=== PATIENT | female | born 1990 | race American Indian/Alaskan Native ===

== ENCOUNTER 2016-09-16 20:34 | Inpatient (IN) | payer MEDICAID ==
[2016-09-16] MEDS ORDERED: Citric Acid/Sodium Citrate Solution 30 ML Cup PO ONE (21:34)
[2016-09-16] MEDS ORDERED: Metoclopramide 10 MG/2 ML SDV IVPUSH ONE (21:34)
[2016-09-16] MEDS ORDERED: Sodium Chloride 0.9% 10 ML Syringe FLUSH PRN (21:34)
[2016-09-16] MEDS ORDERED: Lactated Ringers 1,000 ML IV SCH (21:45)
[2016-09-16] MEDS ORDERED: Oxytocin/Lactated Ringers 10 UNIT/1,000 ML BAG IV SCH (21:45)
[2016-09-16] MEDS ORDERED: ceFAZolin 2 GM in Premix Bag 1 BAG IV ONE (22:06)
[2016-09-16] MEDS ORDERED: Bupivacaine 0.5% 30 ML SDV ONE (22:06)
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
[2016-09-16] MEDS ORDERED: Oxytocin 10 Units/1 ML SDV ONE (22:14)
[2016-09-16] MEDS ORDERED: Phenylephrine 1% 10 MG/ML SDV ONE (22:14)
[2016-09-16] MEDS ORDERED: Lactated Ringers 1,000 ML ONE (22:14)
[2016-09-16] MEDS ORDERED: Morphine PF 10 MG/10 ML SDV ONE (22:14)
[2016-09-16] MEDS ORDERED: ceFAZolin 1 GM Vial ONE (22:14)
[2016-09-16] MEDS ORDERED: Ondansetron 4 MG/2 ML SDV ONE (22:14)
[2016-09-16] MEDS ORDERED: Ketorolac 30 MG/ML SDV ONE (22:14)
[2016-09-16] MEDS ORDERED: fentaNYL 100 MCG/2 ML SDV IVPUSH PRN (22:48)
[2016-09-16] MEDS ORDERED: Ondansetron 4 MG/2 ML SDV IVPUSH PRN (22:48)
[2016-09-16] MEDS ORDERED: diphenhydrAMINE 50 MG/ML SDV IVPUSH PRN (22:48)
[2016-09-16] MEDS ORDERED: Meperidine PF 50 MG/ML Syringe IVPUSH PRN (22:48)
[2016-09-16] MEDS ORDERED: HYDROmorphone 0.5 MG/0.5 ML Syringe IVPUSH PRN (22:48)
[2016-09-16] MEDS ORDERED: ePHEDrine 50 MG/ML SDV IVPUSH PRN (22:48)
[2016-09-16] MEDS ORDERED: Phenylephrine 1 MG in Sodium Chloride 0.9% 10 ML IV SCH (23:00)
[2016-09-16] MEDS ORDERED: fentaNYL 100 MCG/2 ML SDV ONE (23:17)
--- NOTE | 2016-09-16 23:33 | PCM.POSTAN ---
POST ANESTHESIA ASSESSMENT - MENTAL STATUS Mental Status: alert - VITAL SIGNS Pulse Rate: 57 SaO2: 99 Resp Rate: 12 Blood Pressure: 121/70 Temperature: 36.8 C - RESPIRATORY Respiratory Status: respiratory rate WNL, airway patent, O2 saturation stable - CARDIOVASCULAR CV Status: pulse rate WNL, blood pressure stable - GASTROINTESTINAL GI Status: no symptoms - POST OP HYDRATION Hydration Status: adequate & stable
--- NOTE | 2016-09-17 | PCM.OPNOTE ---
- General Post-Op/Procedure Note Date of Surgery/Procedure: 09/16/16 Operative Procedure(s): repeat section Findings: Viable male, 9/9 apgars, weight 6#8oz, normal uterus tubes and ovaries. Pre Op Diagnosis: prior , labor, no care Post-Op Diagnosis: Same Anesthesia Technique: Spinal Primary Surgeon: Tatiana Cordero Anesthesia Provider: Claudia Monroe Apartment Maintenance Worker: Dennis Romero Pathology: none Fluid Replacement, Intraop: 1,100 Output, Urine Amount: 100 EBL in mLs: 500 Complications: None Condition: Good Free Text/Narrative:: The patient was taken to the operating room where spinal anesthesia was initiated without difficulty. The patient was prepped and draped in the usual sterile fashion in the dorsal supine position with a leftward tilt. A Pfannenstiel skin incision was made with the scalpel and carried through to the underlying layer of fascia. The fascia was incised in the midline and extended laterally using Sepulveda scissors. Adhesions from prior surgeries seen. Rob clamps were used to elevate the superior aspect of the fascial incision, which was elevated, and the underlying rectus muscles were dissected off bluntly and using Sepulveda scissors. Attention was then turned to the inferior aspect of the fascial incision, which in similar fashion was grasped with Rob clamps, elevated, and the underlying rectus muscles were dissected off bluntly and using the sepulveda. The rectus muscles were dissected in the midline. The peritoneum was identified and entered using Metzenbaum scissors; this incision was extended superiorly and inferiorly with good visualization of the bladder. The bladder blade was inserted. The vesicouterine peritoneum was identified and entered sharply using Metzenbaum scissors. This incision was extended laterally and the bladder flap was created digitally. The bladder blade was reinserted. The lower uterine segment was incised in a transverse fashion using the scalpel and extended using bandage scissors as well as manual traction. Clear fluid was noted. The infant was subsequently delivered by flexing the head to the incision. Body and shoulders followed without difficulty. The cord was clamped and cut. The was subsequently handed to the awaiting rail engineer whose presence had been requested.. The placenta was delivered spontaneously intact with a three-vessel cord noted. The uterus was exteriorized and cleared of all clots and debris. The uterine incision was repaired in 2 layers using 0 monocryl. Hemostasis was visualized. Hemostasis was visualized bilaterally. The uterus was returned to the abdomen. The uterine incision was reexamined and it was noted to be hemostatic. The pelvis was copiously irrigated. The fascia was closed with 1 PDS suture, and the skin was closed with 3-0 monocryl. Sponge, lap, and instrument counts were correct x2. The patient was stable at the completion of the procedure and was subsequently transferred to the recovery room in stable condition.
[2016-09-17] MEDS ORDERED: Lanolin 100% Cream 7 GM Tube TOP PRN (00:42)
[2016-09-17] MEDS ORDERED: Dextrose 5%-0.45% NaCl 1,000 ML IV SCH (00:42)
[2016-09-17] MEDS ORDERED: diphenhydrAMINE 50 MG/ML SDV IVPUSH PRN (00:42)
[2016-09-17] MEDS ORDERED: Naloxone 0.4 MG/ML SDV IVPUSH PRN (00:42)
[2016-09-17] MEDS ORDERED: Dextrose 5%-Lactated Ringers 1,000 ML IV SCH (00:42)
[2016-09-17] MEDS ORDERED: ePHEDrine 50 MG/ML SDV IVPUSH PRN (00:42)
[2016-09-17] MEDS ORDERED: Docusate Sodium 100 MG Cap PO PRN (00:42)
[2016-09-17] MEDS ORDERED: Misoprostol 200 MCG Tab PO SCH (00:45)
[2016-09-17] MEDS ORDERED: Ketorolac 30 MG/ML SDV IVPUSH SCH (01:00)
[2016-09-17] MEDS: Methylergonovine 0.2 MG/1 ML Amp IM SCH ×3 (01:26→10:01)
[2016-09-17] MEDS ORDERED: Oxytocin/Lactated Ringers 10 UNIT/1,000 ML BAG IV ONE (02:40)
[2016-09-17] MEDS ORDERED: Oxytocin/Lactated Ringers 10 UNIT/1,000 ML BAG IV SCH (03:00)
[2016-09-17] MEDS: Acetaminophen/oxyCODONE 325-5 MG Tab PO PRN ×4 (03:06→22:58)
[2016-09-17] MEDS: Ketorolac 30 MG/ML SDV IVPUSH SCH ×3 (05:32→17:20)
[2016-09-17] MEDS ORDERED: Sodium Chloride 0.9% 1,000 ML IV SCH (07:30)
--- NOTE | 2016-09-17 08:07 | PCM48HPAN ---
Post Anesthesia Note - EVALUATION WITHIN 48HRS OF ANESTHETIC Vital Signs in Normal Range: Yes Patient Participated in Evaluation: Yes Respiratory Function Stable: Yes Airway Patent: Yes Cardiovascular Function Stable: Yes Hydration Status Stable: Yes Pain Control Satisfactory: Yes Nausea and Vomiting Control Satisfactory: Yes Mental Status Recovered: Yes - COMMENTS/OBSERVATIONS Free Text/Narrative:: Pt reports doing well. She has had minor itching, not requesting treatment. no f/c, no n/v, or headache this am. ambulating, taking p.o., colon still in place. Reports Spinal completely resolved.
[2016-09-17] MEDS ORDERED: Ibuprofen 600 MG Tab PO PRN ×2 (20:00→23:00)
--- NOTE | 2016-09-18 06:56 | PCM.PNPP ---
- General Info Date of Service: 09/18/16 Functional Status: Reports: pain controlled - Review of Systems General: Reports: No Symptoms HEENT: Reports: no symptoms Pulmonary: Reports: no symptoms Cardiovascular: Reports: No Symptoms Gastrointestinal: Reports: No symptoms Genitourinary: Reports: no symptoms Musculoskeletal: Reports: no symptoms Skin: Reports: no symptoms Neurological: Reports: No Symptoms Psychiatric: Reports: no symptoms - General Info Date of Service: 09/18/16 - Patient Data Vital Signs - most recent: Last Vital Signs Temp 36.5 C 09/17/16 21:15 Pulse 58 L 09/17/16 21:17 Resp 15 09/17/16 22:00 BP 125/76 09/17/16 21:15 Pulse Ox 100 09/17/16 22:00 Weight - most recent: 84.822 kg I&O - last 24 hours: Intake & Output 09/17/16 09/17/16 09/18/16 14:59 22:59 06:59 Intake Total 1430 1640 Output Total 1700 1950 Balance -270 -310 Lab Results - last 24 hrs: Laboratory Results - last 24 hr 09/16/16 09/17/16 09/17/16 Range/Units 21:55 05:42 05:42 WBC 14.54 H (3.98-10.04) K/mm3 RBC 3.34 L (3.98-5.22) M/mm3 Hgb 7.6 L (11.2-15.7) gm/L Hct 25.1 L (34.1-44.9) % MCV 75.1 L (79.4-94.8) fl MCH 22.8 L (25.6-32.2) pg MCHC 30.3 L (32.2-35.5) g/dl RDW Std Deviation 41.9 (36.4-46.3) fL Plt Count 217 (182-369) K/mm3 MPV 9.8 (9.4-12.3) fl Neut % (Auto) 72.6 H (34.0-71.1) % Lymph % (Auto) 18.3 L (19.3-51.7) % Republic % (Auto) 7.5 (4.7-12.5) % Eos % (Auto) 1.0 (0.7-5.8) Baso % (Auto) 0.1 (0.1-1.2) % Neut # (Auto) 10.56 H (1.56-6.13) K/mm3 Lymph # (Auto) 2.66 (1.18-3.74) K/mm3 Republic # (Auto) 1.09 H (0.24-0.36) K/mm3 Eos # (Auto) 0.15 (0.04-0.36) K/mm3 Baso # (Auto) 0.01 (0.01-0.08) K/mm3 Manual Slide Review Abnormal smear Hep Bs Antigen Nonreactive (NONREACTIVE) HIV-1 Ab Rapid Screen (NEGATIVE) Rubella IgG Antibody Reactive (pos) (REACTIVE) Blood Type B POSITIVE Gel Antibody Screen Negative Crossmatch See Detail 09/17/16 09/18/16 Range/Units 05:42 06:00 WBC 9.34 (3.98-10.04) K/mm3 RBC 3.47 L (3.98-5.22) M/mm3 Hgb 8.3 L (11.2-15.7) gm/L Hct 26.8 L (34.1-44.9) % MCV 77.2 L (79.4-94.8) fl MCH 23.9 L (25.6-32.2) pg MCHC 31.0 L (32.2-35.5) g/dl RDW Std Deviation 44.0 (36.4-46.3) fL Plt Count 195 (182-369) K/mm3 MPV 9.3 L (9.4-12.3) fl Neut % (Auto) 57.9 (34.0-71.1) % Lymph % (Auto) 30.4 (19.3-51.7) % Republic % (Auto) 7.3 (4.7-12.5) % Eos % (Auto) 3.1 (0.7-5.8) Baso % (Auto) 0.3 (0.1-1.2) % Neut # (Auto) 5.41 (1.56-6.13) K/mm3 Lymph # (Auto) 2.84 (1.18-3.74) K/mm3 Republic # (Auto) 0.68 H (0.24-0.36) K/mm3 Eos # (Auto) 0.29 (0.04-0.36) K/mm3 Baso # (Auto) 0.03 (0.01-0.08) K/mm3 Manual Slide Review Hep Bs Antigen (NONREACTIVE) HIV-1 Ab Rapid Screen Negative (NEGATIVE) Rubella IgG Antibody (REACTIVE) Blood Type Gel Antibody Screen Crossmatch Med Orders - Current: Current Medications Diphenhydramine HCl (Benadryl) 25 mg IVPUSH Q6H PRN PRN Reason: pruritis Diphenhydramine HCl (Benadryl) 25 mg IVPUSH Q6H PRN PRN Reason: Itching or Nausea Docusate Sodium (Colace) 100 mg PO Q12H PRN PRN Reason: Constipation Last Admin: 09/17/16 21:24 Dose: 100 mg Emollient Ointment (Lansinoh Hpa) 0 gm TOP ASDIRECTED PRN PRN Reason: Sore Nipples Ephedrine Sulfate (Ephedrine Sulfate) 5 mg IVPUSH ASDIRECTED PRN PRN Reason: Hypotension Ephedrine Sulfate (Ephedrine Sulfate) 5 mg IVPUSH SEECOMMENT PRN PRN Reason: Other Phenylephrine HCl 1 mg/ Sodium (Chloride) 10.1 mls @ 1 mls/sec IV TITRATE NIRANJAN Dextrose/Sodium Chloride (Dextrose 5%-1/2 Ns) 1,000 mls @ 125 mls/hr IV ASDIRECTED [facility] Last Admin: 09/17/16 06:14 Dose: 125 mls/hr Oxytocin/Lactated Ringer's (Pitocin In Lr 10 Units/1,000 Ml) 10 unit in 1,000 mls @ 200 mls/hr IV TITRATE [facility] Last Admin: 09/17/16 02:40 Dose: 200 mls/hr Sodium Chloride (Normal Saline) 1,000 mls @ 500 mls/hr IV .BOLUS [facility] Last Admin: 09/17/16 08:05 Dose: 100 mls/hr Ibuprofen (Motrin) 600 mg PO Q6H PRN PRN Reason: mild pain or fever Misoprostol (Cytotec) 600 mcg PO .ONETIME NIRANJAN Last Admin: 09/17/16 01:15 Dose: 600 mcg Naloxone HCl (Narcan) 0.1 mg IVPUSH SEECOMMENT PRN PRN Reason: Respiratory Depression Ondansetron HCl (Zofran) 4 mg IVPUSH ONETIME PRN PRN Reason: Nausea/Vomiting Oxycodone/Acetaminophen (Percocet 325-5 Mg) 2 tab PO Q4H PRN PRN Reason: Pain Last Admin: 09/17/16 22:58 Dose: 2 tab Discontinued Medications Bupivacaine HCl (Marcaine 0.5%) Confirm Administered Dose 30 ml .ROUTE .STK-MED ONE Stop: 09/16/16 22:07 Last Admin: 09/16/16 22:50 Dose: 20 ml Cefazolin Sodium (Ancef) Confirm Administered Dose 2 gm .ROUTE .STK-MED ONE Stop: 09/16/16 22:15 Citric Acid/Sodium Citrate (Bicitra Solution) 30 ml PO ONETIME ONE Stop: 09/16/16 21:35 Last Admin: 09/16/16 22:06 Dose: 30 ml Fentanyl (Sublimaze) 50 mcg IVPUSH Q5M PRN PRN Reason: Pain Stop: 09/16/16 23:04 Fentanyl (Sublimaze) Confirm Administered Dose 100 mcg .ROUTE .STK-MED ONE Stop: 09/16/16 23:18 Hydromorphone HCl (Dilaudid) 0.5 mg IVPUSH Q15M PRN PRN Reason: severe pain Stop: 09/16/16 23:04 Lactated Ringer's (Ringers, Lactated) 1,000 mls @ 125 mls/hr [facility] Last Admin: 09/16/16 22:06 Dose: 125 mls/hr Oxytocin/Lactated Ringer's (Pitocin In Lr 10 Units/1,000 Ml) 10 unit in 1,000 mls @ 500 mls/hr [facility] Cefazolin Sodium/Dextrose 2 gm (/ Premix) 50 mls @ 100 mls/hr IV ONETIME ONE Stop: 09/16/16 22:35 Last Admin: 09/17/16 03:56 Dose: Not Given Lactated Ringer's (Ringers, Lactated) Confirm Administered Dose 1,000 mls @ as directed .ROUTE .STK-MED ONE Stop: 09/16/16 22:15 Dextrose/Lactated Ringer's (Dextrose 5%-Lactated Ringers) 1,000 mls @ 125 mls/ hr [facility] Stop: 09/17/16 08:41 Last Admin: 09/17/16 01:17 Dose: 125 mls/hr Oxytocin/Lactated Ringer's (Pitocin In Lr 10 Units/1,000 Ml) Confirm Administered Dose 10 unit in 1,000 mls @ as directed IV .STK-MED ONE Stop: 09/17/16 02:41 Last Admin: 09/17/16 03:01 Dose: Not Given Ibuprofen (Motrin) 600 mg PO Q6H PRN PRN Reason: mild pain or fever Ketorolac Tromethamine (Toradol) Confirm Administered Dose 30 mg .ROUTE .STK- MED ONE Stop: 09/16/16 22:15 Ketorolac Tromethamine (Toradol) 30 mg IVPUSH Q6H [facility] Stop: 09/17/16 13:01 Last Admin: 09/17/16 03:56 Dose: Not Given Ketorolac Tromethamine (Toradol) 30 mg IVPUSH Q6H [facility] Stop: 09/17/16 17:16 Last Admin: 09/17/16 17:20 Dose: 30 mg Meperidine HCl (Demerol) 12.5 mg IVPUSH ONETIME PRN PRN Reason: shivering Stop: 09/17/16 22:49 Methylergonovine Maleate (Methergine) 0.2 mg IM Q4H [facility] Stop: 09/17/16 22:01 Last Admin: 09/17/16 10:01 Dose: 0.2 mg Metoclopramide HCl (Reglan) 10 mg IVPUSH ONETIME ONE Stop: 09/16/16 21:35 Last Admin: 09/16/16 22:06 Dose: 10 mg Morphine Sulfate (Duramorph Pf) Confirm Administered Dose 10 mg .ROUTE .STK-MED ONE Stop: 09/16/16 22:15 Ondansetron HCl (Zofran) Confirm Administered Dose 4 mg .ROUTE .STK-MED ONE Stop: 09/16/16 22:15 Oxytocin (Pitocin) Confirm Administered Dose 10 unit .ROUTE .STK-MED ONE Stop: 09/16/16 22:15 Phenylephrine HCl (Syed-Synephrine) Confirm Administered Dose 10 mg .ROUTE .STK- MED ONE Stop: 09/16/16 22:15 Sodium Chloride (Saline Flush) 10 ml FLUSH ASDIRECTED PRN PRN Reason: Keep Vein Open - Interaction Disposition, : at Bedside Support Person: Mother - Recovery Exam Fundal Tone: Firm Fundal Level: At Umbilicus Fundal Placement: Midline Lochia Amount: Scant Lochia Color: Serosa/Lockett Perineum Description: Intact, Minimal Bruising/Swelling Bladder Status: Voiding Urinary Elimination: Indwelling Catheter - Problem List Review Problem List Initiated/Reviewed/Updated: Yes - My Orders Last 24 Hours: My Active Orders 09/17/16 06:10 Consult to Personnel Research Psychologist [CONS] Routine 09/17/16 06:48 OB Panel [OM.PC] Routine 09/17/16 07:21 Blood Transfusion Reflex Orders [OM.PC] Routine 09/17/16 07:22 Transfuse Red Blood Cells [COMM] Routine 09/17/16 07:30 Sodium Chloride 0.9% [Normal Saline] 1,000 ml IV .BOLUS 09/17/16 23:00 Ibuprofen [Motrin] 600 mg PO Q6H PRN 09/17/16 Breakfast Regular Diet [DIET] - Assessment Assessment:: Term . No care. -anemia well controlled. -no issues. - Plan Plan:: 26 year old female with labor and prior at 39w1d. Doing well. No other issues. CPS report pending with baby.
[2016-09-18] MEDS: Acetaminophen/oxyCODONE 325-5 MG Tab PO PRN ×4 (08:51→22:05)
[2016-09-18] MEDS ORDERED: Nicotine 14 MG/24 Hr Patch TRDERM SCH (15:45)
[2016-09-19] MEDS: Acetaminophen/oxyCODONE 325-5 MG Tab PO PRN ×3 (03:22→12:54)
--- NOTE | 2016-09-19 09:04 | PCM.DCSUM1 ---
Discharge Summary - Hospital Course Brief History: No care. Admitted for repeat . Had one ultrasound in [place] [facility]. - Discharge Data Discharge Date: 09/19/16 Discharge Disposition: Home, Self-Care 01 Condition: Good - Patient Summary/Data Operative Procedure(s) Performed: repeat section Consults: Consultations 09/17/16 06:10 Consult to Airline Captain [CONS] Routine Hospital Course: Admitted for RCS. Unremarkable course. - Patient Instructions Diet: Usual Diet as Tolerated Activity: No Strenuous Activities Activity, Other: pelvic rest Driving: May Drive Today Showering/Bathing: May Shower Wound/Incision Care: Keep Operative Site/Wound Site Clean and Dry Notify Provider of: Fever, Increased Pain, Swelling and Redness, Drainage, Nausea and/or Vomiting - Discharge Plan Home Medications: Home Meds . [No Known Home Meds] 10/10/15 [History] Referrals: Tatiana Cordero MD [Primary Care Provider] - - Discharge Summary/Plan Comment DC Time >30 min.: No - General Info Date of Service: 09/19/16 Functional Status: Reports: pain controlled - Review of Systems General: Reports: No Symptoms HEENT: Reports: no symptoms Pulmonary: Reports: no symptoms Cardiovascular: Reports: No Symptoms Gastrointestinal: Reports: No symptoms Genitourinary: Reports: no symptoms Musculoskeletal: Reports: no symptoms Skin: Reports: no symptoms Neurological: Reports: No Symptoms Psychiatric: Reports: no symptoms - Patient Data Vitals - Most Recent: Last Vital Signs Temp 36.4 C 09/19/16 03:25 Pulse 64 09/19/16 03:25 Resp 14 09/19/16 03:25 BP 131/71 09/19/16 03:25 Pulse Ox 100 09/19/16 03:25 Weight - Most Recent: 84.822 kg I&O - Last 24 hours: Intake & Output 09/18/16 09/19/16 09/19/16 22:59 06:59 14:59 Intake Total 330 Balance 330 Med Orders - Current: Current Medications Diphenhydramine HCl (Benadryl) 25 mg IVPUSH Q6H PRN PRN Reason: pruritis Diphenhydramine HCl (Benadryl) 25 mg IVPUSH Q6H PRN PRN Reason: Itching or Nausea Docusate Sodium (Colace) 100 mg PO Q12H PRN PRN Reason: Constipation Last Admin: 09/17/16 21:24 Dose: 100 mg Emollient Ointment (Lansinoh Hpa) 0 gm TOP ASDIRECTED PRN PRN Reason: Sore Nipples Ephedrine Sulfate (Ephedrine Sulfate) 5 mg IVPUSH ASDIRECTED PRN PRN Reason: Hypotension Ephedrine Sulfate (Ephedrine Sulfate) 5 mg IVPUSH SEECOMMENT PRN PRN Reason: Other Phenylephrine HCl 1 mg/ Sodium (Chloride) 10.1 mls @ 1 mls/sec IV TITRATE [facility] Dextrose/Sodium Chloride (Dextrose 5%-1/2 Ns) 1,000 mls @ 125 mls/hr IV ASDIRECTED NIRANJAN Last Admin: 09/17/16 06:14 Dose: 125 mls/hr Oxytocin/Lactated Ringer's (Pitocin In Lr 10 Units/1,000 Ml) 10 unit in 1,000 mls @ 200 mls/hr IV TITRATE [facility] Last Admin: 09/17/16 02:40 Dose: 200 mls/hr Sodium Chloride (Normal Saline) 1,000 mls @ 500 mls/hr IV .BOLUS [facility] Last Admin: 09/17/16 08:05 Dose: 100 mls/hr Ibuprofen (Motrin) 600 mg PO Q6H PRN PRN Reason: mild pain or fever Misoprostol (Cytotec) 600 mcg PO .ONETIME NIRANJAN Last Admin: 09/17/16 01:15 Dose: 600 mcg Naloxone HCl (Narcan) 0.1 mg IVPUSH SEECOMMENT PRN PRN Reason: Respiratory Depression Nicotine (Habitrol) 14 mg TRDERM DAILY [facility] Last Admin: 09/18/16 16:06 Dose: 14 mg Ondansetron HCl (Zofran) 4 mg IVPUSH ONETIME PRN PRN Reason: Nausea/Vomiting Oxycodone/Acetaminophen (Percocet 325-5 Mg) 2 tab PO Q4H PRN PRN Reason: Pain Last Admin: 09/19/16 08:27 Dose: 2 tab Discontinued Medications Bupivacaine HCl (Marcaine 0.5%) Confirm Administered Dose 30 ml .ROUTE .STK-MED ONE Stop: 09/16/16 22:07 Last Admin: 09/16/16 22:50 Dose: 20 ml Cefazolin Sodium (Ancef) Confirm Administered Dose 2 gm .ROUTE .STK-MED ONE Stop: 09/16/16 22:15 Citric Acid/Sodium Citrate (Bicitra Solution) 30 ml PO ONETIME ONE Stop: 09/16/16 21:35 Last Admin: 09/16/16 22:06 Dose: 30 ml Fentanyl (Sublimaze) 50 mcg IVPUSH Q5M PRN PRN Reason: Pain Stop: 09/16/16 23:04 Fentanyl (Sublimaze) Confirm Administered Dose 100 mcg .ROUTE .STK-MED ONE Stop: 09/16/16 23:18 Hydromorphone HCl (Dilaudid) 0.5 mg IVPUSH Q15M PRN PRN Reason: severe pain Stop: 09/16/16 23:04 Lactated Ringer's (Ringers, Lactated) 1,000 mls @ 125 mls/hr IV [facility] Last Admin: 09/16/16 22:06 Dose: 125 mls/hr Oxytocin/Lactated Ringer's (Pitocin In Lr 10 Units/1,000 Ml) 10 unit in 1,000 mls @ 500 mls/hr IV [facility] Cefazolin Sodium/Dextrose 2 gm (/ Premix) 50 mls @ 100 mls/hr IV ONETIME ONE Stop: 09/16/16 22:35 Last Admin: 09/17/16 03:56 Dose: Not Given Lactated Ringer's (Ringers, Lactated) Confirm Administered Dose 1,000 mls @ as directed .ROUTE .STK-MED ONE Stop: 09/16/16 22:15 Dextrose/Lactated Ringer's (Dextrose 5%-Lactated Ringers) 1,000 mls @ 125 mls/ hr IV [facility] Stop: 09/17/16 08:41 Last Admin: 09/17/16 01:17 Dose: 125 mls/hr Oxytocin/Lactated Ringer's (Pitocin In Lr 10 Units/1,000 Ml) Confirm Administered Dose 10 unit in 1,000 mls @ as directed IV .STK-MED ONE Stop: 09/17/16 02:41 Last Admin: 09/17/16 03:01 Dose: Not Given Ibuprofen (Motrin) 600 mg PO Q6H PRN PRN Reason: mild pain or fever Ketorolac Tromethamine (Toradol) Confirm Administered Dose 30 mg .ROUTE .STK- MED ONE Stop: 09/16/16 22:15 Ketorolac Tromethamine (Toradol) 30 mg IVPUSH Q6H [facility] Stop: 09/17/16 13:01 Last Admin: 09/17/16 03:56 Dose: Not Given Ketorolac Tromethamine (Toradol) 30 mg IVPUSH Q6H [facility] Stop: 09/17/16 17:16 Last Admin: 09/17/16 17:20 Dose: 30 mg Meperidine HCl (Demerol) 12.5 mg IVPUSH ONETIME PRN PRN Reason: shivering Stop: 09/17/16 22:49 Methylergonovine Maleate (Methergine) 0.2 mg IM Q4H [facility] Stop: 09/17/16 22:01 Last Admin: 09/17/16 10:01 Dose: 0.2 mg Metoclopramide HCl (Reglan) 10 mg IVPUSH ONETIME ONE Stop: 09/16/16 21:35 Last Admin: 09/16/16 22:06 Dose: 10 mg Morphine Sulfate (Duramorph Pf) Confirm Administered Dose 10 mg .ROUTE .STK-MED ONE Stop: 09/16/16 22:15 Ondansetron HCl (Zofran) Confirm Administered Dose 4 mg .ROUTE .STK-MED ONE Stop: 09/16/16 22:15 Oxytocin (Pitocin) Confirm Administered Dose 10 unit .ROUTE .STK-MED ONE Stop: 09/16/16 22:15 Phenylephrine HCl (Syed-Synephrine) Confirm Administered Dose 10 mg .ROUTE .STK- MED ONE Stop: 09/16/16 22:15 Sodium Chloride (Saline Flush) 10 ml FLUSH ASDIRECTED PRN PRN Reason: Keep Vein Open - Exam General: Reports: alert, oriented HEENT: Reports: Pupils equal, Pupils reactive, EOMI, Mucous membr. moist/pink Neck: Reports: supple Lungs: Reports: Clear to auscultation, Normal respiratory effort Cardiovascular: Reports: Regular Rate, Regular Rhythm Abdomen: Reports: bowel sounds present, soft, no tenderness, no distension (Female) Exam: Normal external exam, Normal speculum exam, Normal bimanual exam Back Exam: Reports: normal inspection, full range of motion Extremities: Reports: no edema, normal pulses Skin: Reports: warm, dry, intact Wound/Incisions: Reports: healing well Neurological: Reports: no new focal deficit Psy/Mental Status: Reports: alert, normal affect, normal mood *Q Meaningful Use (DIS) - VTE *Q VTE Criteria *Q: - Stroke *Q Stroke Criteria *Q: - AMI *Q AMI Criteria *Q:
[2016-09-19 09:27] VITALS: BP 129/68
== END 2016-09-19 13:56 | disposition home or self-care (01) | DRG 766 ==
LOC: JD.OBCHECK 20:34 → JD.OB 20:39 → JD.OBCHECK 21:34 → JD.OB 21:35 → OBSVTOIN 22:55
PROVIDERS: ADMIT Obstetrics & Gynecology; ATTEND Obstetrics & Gynecology
PROC: 10D00Z1 Extraction of Products of Conception, Low, Open Approach (ICD-10-PCS; principal; 2016-09-16)
DX: O34.211 Maternal care for low transverse scar from previous cesarean delivery (principal); N85.8 Other specified noninflammatory disorders of uterus; Z3A.00 Weeks of gestation of pregnancy not specified; Z37.0 Single live birth; O99.334 Smoking (tobacco) complicating childbirth
CPT/HCPCS: 01961; 36415; 36430; 82962; 85025; 86592; 86762; 86850; 86900; 86901; 86922; 87340; 87449; 94762; A9270-GY; J0690; J1885; J2210; J2270; J2370; J2405; J2590; J2765; J3010; J7040; J7042; J7120; P9016